=== PATIENT | female | born 2000 | race Caucasian/White ===

== ENCOUNTER 2020-04-20 20:42 | Emergency (ER) | payer OTHER ==
[~2020-04-20] VITALS: Ht 180.3 cm; Wt 74.1 kg
[2020-04-20 20:44] VITALS: BP 143/77
--- NOTE | 2020-04-20 21:08 | NUR ---
Pt was bit by dog while trying to seperate her dog. Pt has two punctures to right thigh. Pt reports that she feels that was the dog vaccinated.
--- NOTE | 2020-04-20 21:11 | NUR ---
bleeding controlled and new dressing applied.
[2020-04-20] MEDS ORDERED: DIPH,PERTUSS(ACELL),TET VAC/PF 0.5 ML IM-VACC ONE (21:30)
[2020-04-20] MEDS ORDERED: L.E.T SOLUTION TP ONE ×2 (21:36→22:00)
--- NOTE | 2020-04-20 22:28 | NUR ---
wOUND IRRIGATED AND DRESSED.
--- NOTE | 2020-04-20 22:28 | NUR ---
Patient/Caregiver given discharge instructions and they have confirmed that they understand the instructions. Patient ambulatory with steady gait.
== END 2020-04-20 22:30 ==
LOC: ED 22:00
DX: S81.051A Open bite, right knee, initial encounter (principal); W54.0XXA Bitten by dog, initial encounter; Y93.89 Activity, other specified; Y92.009 Unspecified place in unspecified non-institutional (private) residence as the place of occurrence of the external cause; Y99.8 Other external cause status
CPT/HCPCS: 99283

== ENCOUNTER 2020-05-15 19:20 | Emergency (ER) | payer OTHER ==
[~2020-05-15] VITALS: Ht 177.8 cm; Wt 73.8 kg
--- NOTE | 2020-05-15 20:41 | NUR ---
PT REPORTS SHE HAS BEEN HAVING ANXIETY. PT ALSO REPORTS HER FAMILY HAS A HISTORY OF THYROID DISEASE AND SHE WANTS TO HAVE HER THYROID CHECKED. VS STABLE. NO ACUTE DISTRESS NOTED. CALL LIGHT IN PLACE. WILL CONTINUE TO MONITOR.
[2020-05-15 21:11] LABS: BASOPHILS % (AUTO) 1 % (0-1); EOSINOPHILS % (AUTO) 1 % (1-7); LYMPHOCYTES % (AUTO) 27 % (22-44); MEAN CORPUSCULAR HEMOGLOBIN 30.5 pg (27.0-34.8); MEAN CORPUSCULAR HGB CONC 33.9 g/dL (32.4-35.8); MEAN PLATELET VOLUME 8.3 fL (7.4-10.4); MONOCYTES % (AUTO) 7 % (2-9); NEUTROPHILS % (AUTO) 64 % (42-75); PLATELET COUNT 312 x10^3/uL (130-400); RED BLOOD COUNT 5.19 x10^6/uL (3.82-5.3)
[2020-05-15 21:12] LABS: MD NO
[2020-05-15 21:20] LABS: ANION GAP 9 mmol/L (5-15); CALCIUM 9.7 mg/dL (8.5-10.1); CHLORIDE 106 mmol/L (98-107); CREATININE 0.85 mg/dL (0.55-1.02)
[2020-05-15 21:47] VITALS: BP 123/72
== END 2020-05-15 21:49 | disposition home or self-care (01) ==
LOC: ED 21:18
DX: F41.1 Generalized anxiety disorder (principal); F43.0 Acute stress reaction
CPT/HCPCS: 36415; 80048; 84443; 85025; 99283